=== PATIENT | female | born 1995 | race Caucasian/White ===

== ENCOUNTER 2016-08-02 17:45 | Emergency (ER) | payer BC ==
[2016-08-02 19:02] VITALS: BP 138/81
[2016-08-02] MEDS ORDERED: DOXYcycline CAP(*) 100 MG PO ONE (19:43)
--- NOTE | 2016-08-02 19:54 | UC ---
Skin Complaint HPI - HPI Summary HPI Summary: 21 yo female with three day hx of duong/malaise/myalgias today noted rash on left wrist no known tick bite - History of Current Complaint Chief Complaint: UCGeneralIllness Time Seen by Provider: 08/02/16 19:37 Stated Complaint: RED AREA ON ARM Hx Obtained From: Patient Hx Last Menstrual Period: 07/20/16 Onset/Duration: Gradual Onset, Lasting Days Timing: Constant Onset Severity: Mild Current Severity: Moderate Pain Intensity: 3 Pain Scale Used: 0-10 Numeric Aggravating: Nothing Alleviating: Nothing Associated Signs & Symptoms: Positive: Nausea, Rash - Allergy/Home Medications Allergies/Adverse Reactions: Allergies Allergy/AdvReac Type Severity Reaction Status Date / Time Sulfa Antibiotics Allergy Rash Verified 08/02/16 19:02 Home Medications: Home Medications Ibuprofen [Advil] 600 mg PO Q6HR PRN 08/02/16 [History Confirmed 08/02/16] Review of Systems Constitutional: Fatigue, Other - rash Skin: Negative Eyes: Negative ENT: Negative Respiratory: Negative Cardiovascular: Negative Gastrointestinal: Negative Genitourinary: Negative Motor: Negative Neurovascular: Negative Musculoskeletal: Myalgia Neurological: Headache Psychological: Negative All Other Systems Reviewed And Are Negative: Yes PMH/Surg Hx/FS Hx/Imm Hx Previously Healthy: Yes Endocrine History Of: 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 Denies: Thyroid Disease, Hyperthyroidism, Hypothyroidism, Dyslipidemia Cardiovascular History Of: Denies: Cardiac Disorders, Hypertension, Pacemaker/ICD, Myocardial Infarction , Congestive Heart Failure, Atrial Fibrillation, Deep Vein Thrombosis, Bleeding Disorders Respiratory History Of: Denies: COPD, Asthma, Bronchitis, Pneumonia, Pulmonary Embolism GI/ History Of: Denies: Gastroesophageal Reflux, Ulcer, Gastrointestinal Bleed, Gall Bladder Disease, Kidney Stones, Diverticulitis, Renal Disease, Urosepsis Neurological History Of: Denies: TIA, CVA, Dementia, Seizures, Migraine Psychological History Of: Reports: Anxiety, Depression Denies: Bipolar Disorder, Schizophrenia, Post Traumatic Stress Disorder Cancer History Of: Denies: Lung Cancer, Colorectal Cancer, Breast Cancer, Prostate Cancer, Cervical Cancer Other History Of: Negative For: HIV, Hepatitis B, Hepatitis C, Anticoagulant Therapy - Surgical History Surgical History: None - Family History Known Family History: Negative: Cardiac Disease, Hypertension, Diabetes Family History: NON-CONTRIBUTORY - Social History Alcohol Use: Occasionally Substance Use Type: None Smoking Status (MU): Current Some Day Smoker Amount Used/How Often: 1 cig monthly Household Exposure Type: Cigarettes - Immunization History Most Recent Influenza Vaccination: Not the season Physical Exam Triage Information Reviewed: Yes Appearance: Well-Appearing, No Pain Distress, Well-Nourished Vital Signs: Initial Vital Signs Temp 98.0 F 08/02/16 18:56 Pulse 73 08/02/16 18:56 Resp 18 08/02/16 18:56 BP 138/81 08/02/16 18:56 Pulse Ox 99 08/02/16 18:56 Vital Signs Reviewed: Yes Eyes: Positive: Conjunctiva Clear ENT: Positive: Pharynx normal. Negative: Nasal congestion, Nasal drainage, Trismus Neck: Positive: Supple, Nontender, No Lymphadenopathy Respiratory: Positive: Lungs clear, Normal breath sounds, No respiratory distress, No accessory muscle use Cardiovascular: Positive: RRR, No Murmur Musculoskeletal: Positive: ROM Intact, No Edema Neurological: Positive: Alert Psychological Exam: Normal Skin Exam: Other - 5 cm x 5 cm annular bulls eye rash left forearm Course/Dx - Diagnoses Provider Diagnoses: possible lyme disease Discharge - Discharge Plan Condition: Stable Disposition: HOME Prescriptions: DOXYcycline CAP(*) [DOXYcycline 100MG CAP(*)] 100 mg PO BID #28 cap Patient Education Materials: Lyme Disease (ED) Forms: *Work Release Referrals: Poppy Burris MD [Primary Care Provider] - 2 Weeks Additional Instructions: WILL TREAT YOU FOR POSSIBLE LYME DISEASE
== END 2016-08-02 19:49 | disposition home or self-care (01) ==
LOC: UCEAST 17:45
DX: M79.1 Myalgia (principal); R21 Rash and other nonspecific skin eruption; R11.0 Nausea; R73.03 Prediabetes; F41.9 Anxiety disorder, unspecified; F32.9 Major depressive disorder, single episode, unspecified; Z88.3 Allergy status to other anti-infective agents; F17.210 Nicotine dependence, cigarettes, uncomplicated
CPT/HCPCS: 99212; A9270-GY; G0463

== ENCOUNTER 2016-08-04 19:02 | Emergency (ER) | payer BC ==
[2016-08-04 19:18] VITALS: BP 146/87
--- NOTE | 2016-08-04 20:11 | UC ---
Hand/Wrist HPI - HPI Summary HPI Summary: Seen here 2 days ago for pain in L wrist/forearm and new [place]. Was Rx doxycycline for 2 weeks because odd bruised area formed a ring around a central point, though had no known tick bites. Since then bruised area has not grown, and is fading typical to a bruise. Point in the center is gone. Having worsening pain in wrist, elbow, and forearm, also feels vague numbness and pins and needles in her L hand. Since 5 days ago has been house-sitting for a friend who had dogs, goats, chickens, and other animals. 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 - History Of Current Complaint Chief Complaint: UCGeneralIllness Stated Complaint: TICK BITE,ARM PAIN Time Seen by Provider: 08/04/16 19:41 Hx Obtained From: Patient Hx Last Menstrual Period: 07/23/16 ?: No Onset/Duration: Gradual Onset, Lasting Days Severity Initially: Mild Severity Currently: Moderate Character Of Pain: Dull, Aching Aggravating Factor(s): Movement Alleviating: Rest Associated Signs And Symptoms: Positive: Bruising Related History: Dominant Hand Right - Allergies/Home Medications Allergies/Adverse Reactions: Allergies Allergy/AdvReac Type Severity Reaction Status Date / Time Sulfa Antibiotics Allergy Rash Verified 08/04/16 19:18 PMH/Surg Hx/FS Hx/Imm Hx Endocrine History Of: 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 Denies: Thyroid Disease, Hyperthyroidism, Hypothyroidism, Dyslipidemia Cardiovascular History Of: Denies: Cardiac Disorders, Hypertension, Pacemaker/ICD, Myocardial Infarction , Congestive Heart Failure, Atrial Fibrillation, Deep Vein Thrombosis, Bleeding Disorders Respiratory History Of: Denies: COPD, Asthma, Bronchitis, Pneumonia, Pulmonary Embolism GI/ History Of: Denies: Gastroesophageal Reflux, Ulcer, Gastrointestinal Bleed, Gall Bladder Disease, Kidney Stones, Diverticulitis, Renal Disease, Urosepsis Neurological History Of: Denies: TIA, CVA, Dementia, Seizures, Migraine Psychological History Of: Reports: Anxiety, Depression Denies: Bipolar Disorder, Schizophrenia, Post Traumatic Stress Disorder Cancer History Of: Denies: Lung Cancer, Colorectal Cancer, Breast Cancer, Prostate Cancer, Cervical Cancer Other History Of: Negative For: HIV, Hepatitis B, Hepatitis C, Anticoagulant Therapy - Surgical History Surgical History: None - Family History Known Family History: Negative: Cardiac Disease, Hypertension, Diabetes Family History: NON-CONTRIBUTORY - Social History Occupation: Employed Part-time Alcohol Use: Occasionally Substance Use Type: None Smoking Status (MU): Former Smoker Amount Used/How Often: 1 cig monthly Household Exposure Type: Cigarettes - Immunization History Most Recent Influenza Vaccination: Not the season Most Recent Tetanus Shot: pt unsure Review of Systems Constitutional: Negative Skin: Bruising Eyes: Negative ENT: Negative Respiratory: Negative Cardiovascular: Negative Gastrointestinal: Negative Genitourinary: Negative Motor: Negative Neurovascular: Negative Musculoskeletal: Negative Neurological: Paresthesia, Numbness Psychological: Negative All Other Systems Reviewed And Are Negative: Yes Physical Exam Triage Information Reviewed: Yes Appearance: Well-Appearing, No Pain Distress, Obese Vital Signs: Initial Vital Signs Temp 98.4 F 08/04/16 19:07 Pulse 81 08/04/16 19:07 Resp 16 08/04/16 19:07 BP 146/87 08/04/16 19:07 Pulse Ox 97 08/04/16 19:07 Vital Signs Reviewed: Yes Eye Exam: Normal Eyes: Positive: Conjunctiva Clear ENT Exam: Normal ENT: Positive: Normal ENT inspection, Hearing grossly normal, Pharynx normal, TMs normal Dental Exam: Normal Neck exam: Normal Neck: Positive: Supple, Nontender, No Lymphadenopathy Respiratory Exam: Normal Respiratory: Positive: Chest non-tender, Lungs clear, Normal breath sounds, No respiratory distress, No accessory muscle use Cardiovascular Exam: Normal Cardiovascular: Positive: RRR, No Murmur Musculoskeletal Exam: Other - creaking on L dorsal forearm with flexion/ extension, pain along L forearm muscles, tender at L lateral epicondyle Neurological Exam: Normal Neurological: Positive: Alert Psychological Exam: Normal Skin Exam: Other - 3cm irreg brown/purple bruise L forearm with blurred borders Hand/Wrist Course/Dx - Differential Dx/Diagnosis Provider Diagnoses: Minor contusion to L forearm. Tendinitis L forearm Discharge - Discharge Plan Condition: Stable Disposition: HOME Prescriptions: Cetirizine* [ZyrTEC 10 MG TAB*] 10 mg PO DAILY #30 tab Naproxen Sodium [Naproxen Sodium 500 MG TAB] 500 mg PO BID #20 tab Patient Education Materials: Tendinitis (ED), Allergic Rhinitis (ED) Referrals: Krystal Tony MD [Medical Doctor] - 2 Weeks O'Ameena,Poppy, MD [Primary Care Provider] - 2 Weeks Additional Instructions: As we discussed, the appearance of the spot on your L wrist (especially 2 days later), along with the pain in your forearm is NOT consistent with Lyme and you do not need to keep taking the doxycycline. I think you have tendinitis in your wrist and forearm, and this is causing swelling around the nerves (so you are feeling the pins and needles sensation). The bruise is simply a bruise, which is showing signs of healing and fading. Try to avoid activities that make your symptoms worse. If you have no improvement in 1-2 weeks, see the orthopedist I recommend here. Start the daily cetirizine for your allergies. If you need further help, start a nasal steroid spray (such as flonase or nasocort) every day through your typical allergy season. These can be found over the counter.
== END 2016-08-04 20:10 | disposition home or self-care (01) ==
LOC: UCEAST 19:02
DX: S50.12XA Contusion of left forearm, initial encounter (principal); M77.9 Enthesopathy, unspecified; R73.03 Prediabetes; F41.9 Anxiety disorder, unspecified; F32.9 Major depressive disorder, single episode, unspecified; E66.9 Obesity, unspecified; Z87.891 Personal history of nicotine dependence; Z88.3 Allergy status to other anti-infective agents; X58.XXXA Exposure to other specified factors, initial encounter
CPT/HCPCS: 99212; G0463

== ENCOUNTER 2017-03-13 14:55 | Emergency (ER) | payer BC ==
[2017-03-13 15:05] VITALS: BP 153/89
--- NOTE | 2017-03-13 18:27 | UC ---
Neck Pain HPI - HPI Summary HPI Summary: Patient presents to the ED with CC of sore throat, fatigue, neck pain and low grade temp, sweats and chills x 2 days. + congestion, + cough. Denies fever, but notes to sweats and chills. Denies other symptoms. Denies sick contacts or travel. Denies known contacts with viruses/mumps. - History of Current Complaint Chief Complaint: UCRespiratory Stated Complaint: SORE THROAT, HEADACHE Time Seen by Provider: 03/13/17 15:32 Hx Obtained From: Patient Hx Last Menstrual Period: 02/22/17 ?: No Timing: Constant Onset/Duration: Sudden Onset Pain Intensity: 3 Pain Scale Used: 0-10 Numeric Character: Aching Alleviating Factors: Nothing Associated Signs & Symptoms: Positive: Negative - Risk Factors Meningitis Risk Factors: Negative - Allergies/Home Medications Allergies/Adverse Reactions: Allergies Allergy/AdvReac Type Severity Reaction Status Date / Time Sulfa Antibiotics Allergy Rash Verified 03/13/17 15:05 PMH/Surg Hx/FS Hx/Imm Hx Previously Healthy: Yes Other History Of: Negative For: HIV, Hepatitis B, Hepatitis C, Anticoagulant Therapy - Surgical History Surgical History: None - Family History Known Family History: Negative: Cardiac Disease, Hypertension, Diabetes Family History: NON-CONTRIBUTORY - Social History Occupation: Employed Full-time Lives: With Family Alcohol Use: Occasionally Substance Use Type: None Smoking Status (MU): Former Smoker Amount Used/How Often: 1 cig monthly Household Exposure Type: Cigarettes - Immunization History Most Recent Influenza Vaccination: unknown Most Recent Tetanus Shot: pt unsure Review Of Systems Constitutional: Positive: Chills, Fatigue Skin: Positive: Negative ENT: Positive: Sore Throat, Nasal Discharge, Sinus Congestion, Sinus Pain/ Tenderness Respiratory: Positive: Negative Cardiovascular: Positive: Negative Genitourinary: Positive: Negative Musculoskeletal: Positive: Negative Neurological: Positive: Negative All Other Systems Reviewed And Are Negative: Yes Physical Exam Triage Information Reviewed: Yes Appearance: Well-Appearing, Well-Nourished Vital Signs: Initial Vital Signs Temp 98.0 F 03/13/17 14:59 Pulse 108 03/13/17 14:59 Resp 14 03/13/17 14:59 BP 153/89 03/13/17 14:59 Pulse Ox 97 03/13/17 14:59 Vital Signs Reviewed: Yes Eye Exam: Normal Eyes: Positive: Conjunctiva Clear ENT: Positive: Pharyngeal erythema, Nasal congestion, Nasal drainage, TMs normal , Tonsillar swelling, Sinus tenderness, Uvula midline. Negative: Pharynx normal , TM bulging, TM dull, TM red, Hoarse voice, Dental tenderness Dental Exam: Normal Neck: Positive: Enlarged Nodes @ - bilateral Respiratory: Positive: Chest non-tender, Lungs clear Cardiovascular Exam: Normal Cardiovascular: Positive: RRR Musculoskeletal: Positive: Strength Intact Neurological Exam: Normal Neurological: Positive: Alert Psychological: Positive: Normal Response To Family Skin Exam: Normal Neck Pain Course/Dx - Course Course Of Treatment: Strep negative. Patient is given supportive measures with prescriptions. Note for work. Strict return precautions for worsening symptoms. She is OK with discharge. URI - Differential Dx/Diagnosis Provider Diagnoses: URI Discharge - Discharge Plan Condition: Stable Disposition: HOME Prescriptions: Albuterol HFA INHALER* [Ventolin HFA Inhaler*] 1 puff INH Q4H PRN #1 mdi PRN Reason: Cough Benzonatate CAP* [Tessalon CAP*] 100 mg PO TID #21 cap guaiFENesin ER TAB [Mucinex*] 1,200 mg PO DAILY #10 tab.er predniSONE TAB* [Deltasone TAB*] 50 mg PO DAILY #5 tab MDD 1 Patient Education Materials: Pharyngitis (ED), Upper Respiratory Infection (ED) Forms: *Work Release Referrals: No Primary Care Phys,NOPCP [Primary Care Provider] - Additional Instructions: Tessalon up to three times daily for cough Mucinex once daily for congestion Prednisone once daily in the MORNING (start tomorrow morning) Albuterol inhaler as needed for cough/shortness of breath
== END 2017-03-13 16:38 | disposition home or self-care (01) ==
LOC: UCEAST 14:55
DX: J06.9 Acute upper respiratory infection, unspecified (principal); Z87.891 Personal history of nicotine dependence; Z88.2 Allergy status to sulfonamides
CPT/HCPCS: 87651; 99212; G0463

== ENCOUNTER 2017-10-20 21:39 | Emergency (ER) | payer BC ==
[2017-10-20 21:48] VITALS: BP 134/84
[2017-10-20] MEDS ORDERED: Naproxen TAB* 250 MG PO ONE (21:58)
--- NOTE | 2017-10-20 21:59 | UC ---
Knee Pain HPI - HPI Summary HPI Summary: 22-year-old female presents with complaints of left knee pain. States slipped while descending stairs into her apartment tonight around 9:30 PM. Fell down approximately 3-4 stairs. Denies any other injury. Exact mechanism of injury is unknown although patient does believe that it was a twisting injury. States she has been unable to bear weight or ambulate since the injury. Pain is a constant throbbing. Worsens with any type of movement. Denies any previous injuries to this knee, decrease in sensation distally, or bruising. - History of Current Complaint Chief Complaint: UCLowerExtremity Stated Complaint: KNEE INJURY Time Seen by Provider: 10/20/17 21:48 Hx Obtained From: Patient Hx Last Menstrual Period: 09/22/17 ?: No Onset/Duration: Sudden Onset Severity Initially: Moderate Severity Currently: Moderate Pain Intensity: 10 Character: Throbbing Aggravating Factor(s): Movement Alleviating Factor(s): Nothing Associated Signs And Symptoms: Positive: Negative Able to Bear Weight: No - Allergies/Home Medications Allergies/Adverse Reactions: Allergies Allergy/AdvReac Type Severity Reaction Status Date / Time Sulfa (Sulfonamide Allergy Rash Verified 10/20/17 21:49 Antibiotics) PMH/Surg Hx/FS Hx/Imm Hx Previously Healthy: Yes Respiratory History: Asthma Other History Of: Negative For: HIV, Hepatitis B, Hepatitis C, Anticoagulant Therapy - Surgical History Surgical History: None - Family History Known Family History: Positive: Other - Noncontributory Negative: Cardiac Disease, Hypertension, Diabetes Family History: NON-CONTRIBUTORY - Social History Occupation: Student Lives: Alone Alcohol Use: None Substance Use Type: None Smoking Status (MU): Former Smoker Amount Used/How Often: 1 cig monthly Household Exposure Type: Cigarettes - Immunization History Most Recent Influenza Vaccination: unknown Most Recent Tetanus Shot: pt unsure Review of Systems Constitutional: Negative Skin: Negative Motor: Decreased ROM Neurovascular: Negative Musculoskeletal: Arthralgia, Other: - See history of present illness Is Patient Immunocompromised?: No All Other Systems Reviewed And Are Negative: Yes Physical Exam Triage Information Reviewed: Yes Appearance: Well-Appearing, Pain Distress, Obese, Other: - Head normocephalic and atraumatic Vital Signs: Initial Vital Signs Temp 100.4 F 10/20/17 21:42 Pulse 100 10/20/17 21:42 Resp 20 08/08/18 21:42 BP 134/84 10/20/17 21:42 Pulse Ox 95 10/20/17 21:42 Vital Signs Reviewed: Yes Neck: Positive: Supple, Nontender Respiratory: Positive: No respiratory distress Cardiovascular: Positive: Pulses Normal, Brisk Capillary Refill Musculoskeletal: Positive: No Edema, ROM Limited @ - Left knee due to pain, Other: - Diffuse left knee tenderness to palpation. No obvious deformity. No ecchymosis, abrasions, or erythema. Neurological: Positive: Other: - Sensation intact distally Skin Exam: Normal UC Physical Exam Vital Signs On Initial Exam: Initial Vitals Temp Pulse Resp BP Pulse Ox 100.4 F 100 20 134/84 95 10/20/17 21:42 10/20/17 21:42 10/20/17 21:42 10/20/17 21:42 10/20/17 21:42 Diagnostics - Radiology No standard instances Xray Interpretation: Positive (See Comments) - Mildly displaced left patella fracture. Preliminary reading by myself. Radiology Interpretation Completed By: ED Physician Knee Pain Course/Dx - Course Course Of Treatment: 22-year-old female presents with left knee pain status post fall down 3-4 stairs. She was notably tender over the left patella on exam. X-ray shows a mildly displaced left patellar fracture. Patient was placed in a knee immobilizer. She presented with her own crutches. She was given hydrocodone/acetaminophen 5325 mg 1 tab prior to discharge as well as ondansetron 4 mg for some nausea. She was dispensed with 2 doses of the hydrocodone/acetaminophen and provided a prescription. Home care was reviewed with the patient verbalizes understanding. She is to call first thing in the morning to make a follow-up appointment with Dr. Rosales from orthopedic surgery. - Differential Dx/Diagnosis Differential Diagnosis/HQI/PQRI: Fracture (Closed), Internal Derangement Of Knee , Sprain, Strain, Tendonitis Provider Diagnoses: Left patellar fracture displaced Discharge - Sign-Out/Discharge Documenting (check all that apply): Patient Departure - Discharge Plan Condition: Stable Disposition: HOME Prescriptions: Hydrocodone/Acetaminophen [Hydrocodone-Acetamin 5-325 mg] 1 each PO Q6HR PRN # 28 tablet MDD 4 PRN Reason: Pain Patient Education Materials: Patellar Fracture (ED) Forms: *Work Release Referrals: No Primary Care Phys,NOPCP [Primary Care Provider] - Boone Rosales MD [Medical Doctor] - 2 Days (Call in the morning for appointment.) Additional Instructions: Your x-ray performed in the clinic today shows a fracture of your left patella ( kneecap). Rest your leg. You should not bear weight or ambulate until seen by orthopedics. Use your crutches for ambulation. Apply ice to the knee for 15-20 minutes at least 4 times a day to help reduce swelling. Wear the knee immobilizer at all times. You may remove to shower or bathe but should wear at all other times including while sleeping. The sure to keep her leg elevated to help reduce swelling. You been prescribed hydrocodone/acetaminophen 1 tab orally every 6 hours as needed for pain. This is a narcotic and will cause drowsiness so do not take and drive or operate machinery. You may also take an anti-inflammatory such as ibuprofen according to directions for pain. You been given a referral to the orthopedic surgeon, Dr. Rosales, be sure to call his office first thing in the morning to schedule an appointment for follow -up. - Billing Disposition and Condition Condition: STABLE Disposition: Home
[2017-10-20] MEDS ORDERED: HYDROcodone/ACETAMIN 5-325 MG* 1 TAB PO ONE ×2 (22:13)
[2017-10-20] MEDS ORDERED: Ondansetron ODT TAB* 4 MG PO ONE (22:15)
--- NOTE | 2017-10-21 07:11 | RAD ---
INDICATION: Left knee pain after a fall down stairs COMPARISON: Similar radiograph dated October 02, 2015 TECHNIQUE: 4 view radiograph of the left knee. FINDINGS: On the AP view of the left knee there is a longitudinally oriented fracture line along the medial aspect of the left patella. On the sunrise view this nondisplaced fracture is seen along the medial margin of the patella. Remaining visualized bones are intact and appropriately aligned. There is a hyperdense fluid collection within the knee joint consistent with hemarthrosis. IMPRESSION: Nondisplaced fracture involving the medial aspect of the left patella. R0
== END 2017-10-20 22:45 | disposition home or self-care (01) ==
LOC: UCEAST 21:39
DX: S82.002A Unspecified fracture of left patella, initial encounter for closed fracture (principal); W10.9XXA Fall (on) (from) unspecified stairs and steps, initial encounter; Y93.9 Activity, unspecified; Y92.9 Unspecified place or not applicable; Z88.2 Allergy status to sulfonamides; Z87.891 Personal history of nicotine dependence
CPT/HCPCS: 99213; A9270-GY; G0463

== ENCOUNTER 2017-11-05 08:10 | Day surgery (SDC) | payer BC ==
[~2017-11-05 08:10] MED LIST: Buffered Lidocaine 0.9% SYRIN* 5 ML/SYR SYRINGE INTRADERM ONE
[2017-11-05] MEDS ORDERED: ceFAZolin 1 GM ADVAN(*) 1 GM ADDV.VIAL IVPB ONE (08:20)
[2017-11-05] MEDS ORDERED: ceFAZolin 2 GM PREMIX (*) 2 GM/50 ML BAG IVPB ONE (08:20)
[2017-11-05] MEDS ORDERED: fentaNYL* 50 MCG/ML 5 ML VIAL (250 MCG VIAL) ONE (08:43)
[2017-11-05] MEDS ORDERED: Midazolam* 1 MG/ML 2 ML VIAL (2 MG) ONE (08:43)
[2017-11-05] MEDS ORDERED: Rocuronium* 10 MG/ML VIAL ONE (09:39)
[2017-11-05] MEDS ORDERED: Bupivacaine 0.25% W/EPI* 10 ML SDV ONE ×2 (09:47→13:03)
[2017-11-05] MEDS ORDERED: EPINEPHRINE 1 MG/ML 1 ML VIAL ONE (09:49)
[2017-11-05] MEDS ORDERED: Morphine VIAL* 10 MG/ML 1 ML VIAL ONE (11:50)
[2017-11-05] MEDS ORDERED: Dexamethasone IV* 4 MG/ML 1 ML (4 MG) ONE (11:59)
[2017-11-05] MEDS ORDERED: Metoclopramide IV* 5 MG/ML 2 ML VIAL ONE (12:01)
[2017-11-05] MEDS ORDERED: Morphine INJ* 2 MG/ML 1 ML SYRINGE (TWO MG - NEW SYRINGE VERSION) IV PRN (12:05)
[2017-11-05] MEDS ORDERED: DiMENhydriNATE IV* 50 MG/ML VIAL IV PUSH PRN (12:05)
[2017-11-05] MEDS ORDERED: Naloxone* 0.4 MG/ML 1 ML VIAL IV PRN (12:05)
[2017-11-05] MEDS ORDERED: Ondansetron INJ* 2 MG/ML VIAL IV PRN (12:05)
[2017-11-05] MEDS ORDERED: Acetaminophen TAB* 325 MG PO PRN (12:05)
[2017-11-05] MEDS ORDERED: HYDROcodone/ACETAMIN 5-325 MG* 1 TAB PO PRN (12:05)
[2017-11-05] MEDS ORDERED: Ondansetron INJ* 2 MG/ML VIAL ONE ×2 (13:15→13:58)
[2017-11-05] MEDS ORDERED: fentaNYL* 50 MCG/ML 2 ML VIAL (100 MCG VIAL) ONE ×2 (13:34→14:38)
[2017-11-05] MEDS: fentaNYL* 50 MCG/ML 2 ML VIAL (100 MCG VIAL) IV PRN ×5 (13:35→14:44)
[2017-11-05] MEDS ORDERED: Morphine INJ* 2 MG/ML 1 ML SYRINGE (TWO MG - NEW SYRINGE VERSION) ONE (13:50)
[2017-11-05] MEDS ORDERED: HYDROcodone/ACETAMIN 5-325 MG* 1 TAB ONE (14:37)
[2017-11-05] MEDS ORDERED: Ketorolac INJ* 30 MG/ML 1 ML VIAL ONE (14:38)
[2017-11-05] MEDS ORDERED: Ketorolac INJ* 15 MG/ML 1 ML VIAL IV PUSH ONE (14:41)
[2017-11-05] MEDS ORDERED: Succinylcholine* 20 MG/ML 10 ML VIAL ONE (14:52)
[2017-11-05 16:04] VITALS: BP 141/80
--- NOTE | 2017-11-07 22:32 | OP ---
DATE OF OPERATION: 11/05/17 [facility] DATE OF : 95. SURGEON: Boone Rosales MD. TIME CLOCK MECHANIC: BAKARI Mcdaniel. A physician business assistant was required for the length of the procedure for assistance with positioning, instrumentation, retraction and closure. ANESTHESIOLOGIST: Dr. Zachery Shearer. ANESTHESIA: General anesthesia, local anesthesia using 20 cc of 0.25% Marcaine with epinephrine. PRE-OP DIAGNOSIS: Left knee patella fracture, displaced. POST-OP DIAGNOSIS: Left knee patella fracture, displaced. OPERATIVE PROCEDURE: Open reduction internal fixation left knee patella fracture. ANTIBIOTICS: Ancef 3 g IV. IV FLUIDS: 1200 cc of crystalloid. TOURNIQUET TIME: 74 minutes at 300 mmHg. [id number]-YY-[id number] TIME: 70 minutes. SPECIMEN: None. IMPLANTS: Arthrex 3.0 mm cannulated partially threaded screws, x2 were placed. FiberTape from Arthrex was placed through the screws for a tension band technique. ESTIMATED BLOOD LOSS: Minimal. COMPLICATIONS: None. INDICATION FOR PROCEDURE: The patient is a 22-year-old woman who injured her left knee on 10/20/17 and presented in clinic where review of radiographs showed a displaced oblique fracture of the left patella specifically about the medial or inferomedial aspect of the patella. There was significant stepoff intraarticular of 3 to 4 mm. I obtained an MRI of the patient's left knee to see if there was any other injury to the knee and to see if there was any evidence of a patellar dislocation though patient could not describe such an event, but clear advantage of one of the things that I can consider when there is a fracture about the medial patella to which the patient did not recall falling onto the patella, but she was not very clear how she fell the besides falling backwards is her mechanism. MRI demonstrated no contusions of the medial patella or lateral trochlear groove or any other evidence of patellar instability event. Therefore, I treated this as a patellar fracture and not as a fracture dislocation of the patella. I discussed risks and potential complications of the surgery with the patient including bleeding, infection, nerve or blood vessel injury, knee pain, stiffness, osteoarthritis, blood clot. DESCRIPTION OF PROCEDURE: Patient signed a written consent in the preoperative holding. Operative extremity was marked in the preoperative holding. The patient was taken back to the operating room and placed supine on the operating room table. Sedated and intubated. A bump on her left hemipelvis. The C-arm was present in the room. The left lower extremity was prepped and draped. Surgical time-out performed. An Esmarch was applied and the tourniquet that was present about the proximal thigh, was inflated to 300 mmHg. I made an anterior midline longitudinal skin incision with the knee in 30 degrees of flexion, starting several centimeters proximal through the proximal pole of the patella and ending several centimeters distal to the distal pole of the patella. I extended that incision eventually closer to the tibial tubercle. I exchanged knives and continued my dissection down to the patella. I cleared patella medially and laterally. I was able to palpate the location of the oblique fracture line. I used a deep knife to cut the superficial tissue and periosteum at the location of the fracture, freeing up the fracture. I debrided the fracture ends of clot with rongeur and a curette. I reduced the fracture with my fingers and then placed two large bone clamps across the fracture. I then placed one K-wire across the fracture to help with the reduction. A C-arm imaging was brought in and multiple AP and lateral views confirmed excellent reduction. I was visibly able to inspect the fracture site at its proximal and distal most extent and confirm excellent reduction visually. It should be noted that I made a transverse incision of the medial capsule at the level of the suture most extent to the fracture. I made a longitudinal incision, just distal to the patella, through patellar tendon fibers at the distal end of the fracture to help visualize my reduction and to aid in reduction itself. Now that I was happy with reduction, I placed 2 K-wires across in my preferred location for future screws. These K-wires were placed perpendicular to the fracture line. They were located about the mid point from superficial to deep in the patella. I measured the length of the intended screws, drilled and then placed my screws. Two separate partially threaded 3.0 mm cannulated screws were placed across the fracture. X-ray imaging demonstrated continued excellent reduction as did visualization of the proximal distal most extents of the fracture as well as the superficial nature of the fracture line that was exposed. I placed a FiberTape through the cannulated screws and then tied a knot, tension band technique. Irrigation. Final x-rays. Closure of the vertical switch between patellar tendon fibers was closed with [id number] stitches using Vicryl 0 suture. Closure of the horizontal incision in the medial capsule, inline with MPSL fibers was closed with some Ethibond 0 suture and some Vicryl 0 suture both [id number] stitches. A Vicryl 0 figure- of-eight stitch was used to bring the knot of FiberWire too down to bone nicely. Irrigation. Closure of the subcutaneous tissue with buried simple stitches using Vicryl 2-0 suture. Closure of the skin with zac. Local anesthesia, 20 cc was infused into the subcutaneous tissue. Xeroform, 4x4s, ABDs, sterile Webril, Junior bandage from foot to proximal thigh. Tourniquet was dropped. A knee brace was applied and locked in full extension. Patient was awakened and extubated and transferred to the PACU. DISPOSITION: The patient was discharged home when medically stable. She will take Percocet as needed for pain control, Keflex for infection prevention and aspirin b.i.d., for 2 weeks for DVT prophylaxis. She will follow up with me in clinic in 10 to 14 days postoperatively. Wound care instructions were provided. Patient will not start physical therapy until after her first clinic visit with me. [id number]/[facility] #: [id number] ABELINO
--- NOTE | 2017-11-08 10:14 | RAD ---
CPT II Codes: G9500 INDICATION: Traumatic patellar fracture. Fluoroscopic services provided for referring physician. Approximately 18.2 seconds of fluoroscopy time was used. 8 spot images demonstrates internal fixation patellar fracture. IMPRESSION: Fluoroscopic services provided for referring physician for internal fixation of a patellar fracture.
== END 2017-11-05 17:04 | disposition home or self-care (01) ==
LOC: OR 08:10
PROVIDERS: ATTEND Orthopaedic Surgery
DX: S82.092A Other fracture of left patella, initial encounter for closed fracture (principal); W10.8XXA Fall (on) (from) other stairs and steps, initial encounter; Y92.096 Garden or yard of other non-institutional residence as the place of occurrence of the external cause; G47.33 Obstructive sleep apnea (adult) (pediatric); Z87.891 Personal history of nicotine dependence; E66.01 Morbid (severe) obesity due to excess calories; F32.9 Major depressive disorder, single episode, unspecified; J45.909 Unspecified asthma, uncomplicated
CPT/HCPCS: 76001; 81025; C1713; J0330; J0690; J1100; J1885; J2250; J2270; J2405; J2765; J3010

== ENCOUNTER 2018-08-10 18:19 | Emergency (ER) | payer BC ==
--- OUTSIDE RECORDS SUMMARY | 2018-08-10 18:23 | XMS REPORT | Continuity of Care Document ---
:1995 External Reference #:[id number] Author Name Sonia Olguin Care Team Providers Name Role Phone Patient's Choice Primary Care Physician Unavailable Payers Date Identification Numbers Payment Provider Subscriber Effective: 2006 Policy Number: [id number] [facility] Lai Gil Group Name: [id number] [address] PayID: [id number] CHRISTINA Williamson [id number] Expires: 2014 Policy Number: [id number] Medicaid Deborah Gil Group Name: 1 [address] PayID: [id number] [place] [address] Advance Directives Description No Information Available Problems Active Problems Provider Date Disturbance in sleep behavior Oswald Zamarripa M.D. Onset: 04/11/2015 Insufficient sleep syndrome Oswald Zamarripa M.D. Onset: 04/11/2015 Obstructive sleep apnea syndrome Sarah Whitlock DNP, RN, [facility] Onset: Family History Date Family Member(s) Observation Comments General Colon Cancer Father Alive And Well Mother Stroke Siblings 5 Siblings 5 Healthy siblings Social History Type Date Description Comments Sex Unknown Lives With Father Occupation Door food and beverage checker at [employer] Use Denies alcohol use Tobacco Use Start: Unknown End: Patient is a former Quit x 1 mo ago, Unknown smoker only smoked x 3 mos Smoking Status Reviewed: 07/26/18 Patient is a former Quit x 1 mo ago, smoker only smoked x 3 mos Exercise Type/Frequency Exercises regularly Walking Allergies, Adverse Reactions, Alerts Active Allergies Reaction Severity Comments Date Sulfa 11/27/2011 Medications Active Medications SIG Qnty Indications Ordering Provider Date Hydrocodone-Acetamino 1 tab by mouth 20tabs Dm Humphries MD 11/16/2017 phen every 6 hours as 5-325mg Tablets needed for pain Ibuprofen as needed Unknown 200mg Capsules History Medications Percocet take 1 tabs by 30tabs Boone Rosales, 11/05/2017 - 5-325mg mouth q4-6 hours 11/16/2017 Tablets as needed pain Keflex 1 tab by mouth 21caps Boone Rosales, 11/05/2017 - 500mg Capsules three times a day 02/21/2018 Trazodone HCL 1 tablet at 30tabs Oswald Zamarripa, 04/10/2015 - 50mg bedtime as needed M.D. 10/25/2017 Tablets Prozac 1 po qd Other Ordering 07/28/2012 - 20mg Capsules Provider 03/15/2014 Ibprofen 1 q 6 h as needed Other Ordering 07/28/2012 - 600mg Provider 10/25/2017 No Active Medications Krystal Tony, 06/01/2012 - M.DRaymond 07/28/2012 Clonidine HCL 1 by mouth at Unknown - 0.2mg bedtime 04/10/2015 Tablets Hydrocodone-Acetamino Take 1 tab by 28tabs Boone Rosales, - phen mouth every 6 11/05/2017 5-325mg Tablets hours as needed pain Immunizations CPT Code Status Date Vaccine Lot # [id number] Given 01/09/2015 Influenza Virus 3Yrs & Over Vital Signs Date Vital Result Comment 07/26/2018 11:33am Height 67 inches 5'7" Weight 275.00 lb Heart Rate 83 /min Body Temperature 97.3 F O2 % BldC Oximetry 96 % BMI (Body Mass Index) 43.1 kg/m2 04/26/2018 12:02pm Height 67 inches 5'7" Weight 273.00 lb Patient stated Heart Rate 56 /min BP Systolic 122 mmHg BP Diastolic 80 mmHg Respiratory Rate 16 /min Pain Level 0 BMI (Body Mass Index) 42.8 kg/m2 02/22/2018 9:40am Height 67 inches 5'7" Weight 270.00 lb Heart Rate 79 /min BP Systolic 138 mmHg BP Diastolic 74 mmHg Respiratory Rate 12 /min Pain Level 0 BMI (Body Mass Index) 42.3 kg/m2 01/11/2018 2:06pm Heart Rate 76 /min BP Systolic 132 mmHg BP Diastolic 88 mmHg Respiratory Rate 16 /min Pain Level 4 12/22/2017 1:04pm Height 67 inches 5'7" Heart Rate 88 /min BP Systolic 130 mmHg BP Diastolic 82 mmHg Respiratory Rate 18 /min Pain Level 2 11/30/2017 1:10pm Height 67 inches 5'7" Weight 242.00 lb BP Systolic Sitting 126 mmHg BP Diastolic Sitting 68 mmHg Respiratory Rate 14 /min Body Temperature 98.9 F Pain Level 0 BMI (Body Mass Index) 37.9 kg/m2 11/16/2017 2:09pm Height 67 inches 5'7" Weight 272.00 lb Heart Rate 100 /min Respiratory Rate 18 /min Body Temperature 99.5 F Pain Level 5 BMI (Body Mass Index) 42.6 kg/m2 10/26/2017 8:45am Height 67 inches 5'7" Weight 270.00 lb BP Systolic 119 mmHg BP Diastolic 77 mmHg Respiratory Rate 17 /min Pain Level 10 BMI (Body Mass Index) 42.3 kg/m2 07/12/2015 9:35am Height 67 inches 5'7" Weight 245.00 lb Heart Rate 63 /min BP Systolic Sitting 129 mmHg BP Diastolic Sitting 77 mmHg Respiratory Rate 16 /min O2 % BldC Oximetry 98 % BMI (Body Mass Index) 38.4 kg/m2 04/11/2015 1:02pm Height 67 inches 5'7" Weight 252.50 lb Heart Rate 73 /min BP Systolic 124 mmHg BP Diastolic 78 mmHg Respiratory Rate 12 /min O2 % BldC Oximetry 98 % BMI (Body Mass Index) 39.5 kg/m2 Neck Circumference in inches 20 07/11/2014 9:33am Height 67 inches 5'7" Weight 247.00 lb Heart Rate 71 /min BP Systolic Sitting 139 mmHg BP Diastolic Sitting 91 mmHg Pain Level 5 BMI (Body Mass Index) 38.7 kg/m2 07/28/2012 2:48pm Height 67 inches 5'7" Weight 210.00 lb BMI (Body Mass Index) 32.9 kg/m2 Blood Pressure Percentile 0 % Height Percentile 86 % Weight Percentile >97th Results Description No Information Available Procedures Date Code Description Status 11/05/2017 50317 Open TX Of Patellar FX W/Internal Fixation And/Or Partial Completed Patelle 11/05/2017 43890 Open TX Of Patellar FX W/Internal Fixation And/Or Partial Completed Patelle 04/22/2015 21970 Sleep Study Unattended,HRT Rate,Oxygen Sat,Resp Completed Effort/Airflow 07/28/2012 71271 Rad Exam; Foot Comp Completed Encounters Type Date Location Provider Dx Diagnosis Office Visit 04/26/2018 [facility] S82.002D Unsp fracture of 11:30a Services Of Shanita Rosales MD left patella, subs for clos fx w routn heal S82.092D Oth fracture of left patella, subs for clos fx w routn heal Office Visit 02/22/2018 9:00a [facility]opedic [facility] S82.002D Unsp fracture Services Of MD Connie of left C.M.A. patella, subs for clos fx w routn heal Office Visit 10/26/2017 8:15a Orthopedic [facility] S82.002A Unsp fracture Services Of MD Connie of left C.M.A. patella, init for clos fx S82.021A Displaced longitudinal fracture of right patella, init Office Visit 07/12/2015 Pulmonology And Sarah G47.33 Obstructive sleep 9:30a Sleep Services Of MANDA Whitlock, RN, apnea (adult) [facility] EVAPORATOR SUPERVISOR-BC (pediatric) Office Visit 04/11/2015 Pulmonology And Oswald Zamarripa, G47.9 Sleep disorder, 1:30p Sleep Services Of Rusty unspecified [facility] F51.12 Insufficient sleep syndrome Office Visit 07/11/2014 9:00a Orthopedic Ilan Guerra, 924.11 Contusion Knee Services Of Rusty Diehl 719.46 Pain Joint Lower Leg Office Visit 07/28/2012 Sports Medicine Yasmany Pal, 719.47 Pain Joint Ankle & 2:30p Of Gut Sorter AT M.D. 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 Patella AT [place] Office Visit 02/12/2012 [facility] Orville Paulino, 836.3 Dislocation Knee 10:30a of Gut Sorter MDanyell Patella Closed 844.9 Sprains & Strains Knee & Leg Unspec Office Visit 01/13/2012 9:15a Joint Myrtle Paulino, 836.3 Dislocation Knee of Jfery Ojeda Patella Closed Office Visit 12/23/2011 2:30p [facility] Orville Paulino, 836.3 Dislocation Knee of Gut Sorter M.D. Patella Closed 844.9 Sprains & Strains Knee & Leg Unspec Office Visit 12/09/2011 2:30p [facility] Orville Paulino, 836.3 Dislocation Knee of Gut Sorter M.D. Patella Closed Office Visit 11/27/2011 9:00a [facility] Orville Paulino, 844.9 Sprains & Strains of Gut Sorter M.D. Knee & Leg Unspec Plan of Treatment 07/26/2018 - Boone Rosales, MDS82.002D Unspecified fracture of left patella , subsequent encounter fFollow up:Follow up: As needed
[2018-08-10 19:08] VITALS: BP 129/76
--- NOTE | 2018-08-10 19:24 | UC ---
Abdominal Pain Female HPI - HPI Summary HPI Summary: 23 yo female presents with abdominal pain and nausea. She tells me that yesterday her stomach felt "off" and she was nauseous with a decreased appetite. Today she has had 6 episodes of vomiting and has not eaten anything due to this. She is drinking well. Today had a larger than normal BM that may have been a bit looser than normal. She is having some generalized abdominal discomfort. Denies fever, chills, SOB, chest pain, flank pain, dysuria. LMP 08/07 - History of Current Complaint Chief Complaint: UCAbdominalPain Stated Complaint: ABDOMINAL PAIN Time Seen by Provider: 08/10/18 19:24 Hx Obtained From: Patient Hx Last Menstrual Period: 08/07/18 Onset/Duration: Sudden Onset Severity Initially: Moderate Severity Currently: Moderate Pain Intensity: 6 Pain Scale Used: 0-10 Numeric Allergies/Adverse Reactions: Allergies Allergy/AdvReac Type Severity Reaction Status Date / Time Sulfa (Sulfonamide Allergy Rash Verified 08/10/18 19:08 Antibiotics) Home Medications: Home Medications DiMENhydriNATE TAB* [DraMAMine TAB*] 50 mg PO ONCE PRN 08/10/18 [History Confirmed 08/10/18] PMH/Surg Hx/FS Hx/Imm Hx - Additional Past Medical History Additional PMH: None Other History Of: Negative For: HIV, Hepatitis B, Hepatitis C, Anticoagulant Therapy - Surgical History Surgical History: Yes Surgery Procedure, Year, and Place: LEFT KNEE (ORIF) - Family History Known Family History: Positive: Non-Contributory Negative: Cardiac Disease, Hypertension, Diabetes Family History: NON-CONTRIBUTORY - Social History Occupation: Employed Full-time Lives: With Family Alcohol Use: None Substance Use Type: None Smoking Status (MU): Former Smoker Amount Used/How Often: RARELY X 1 YEAR Have You Smoked in the Last Year: Yes Household Exposure Type: Cigarettes - Immunization History Most Recent Influenza Vaccination: unknown Most Recent Tetanus Shot: pt unsure Review of Systems All Other Systems Reviewed And Are Negative: Yes Constitutional: Positive: Negative Skin: Positive: Negative Respiratory: Positive: Negative Cardiovascular: Positive: Negative Gastrointestinal: Positive: Abdominal Pain, Vomiting, Nausea Genitourinary: Positive: Negative Neurological: Positive: Negative Psychological: Positive: Negative Physical Exam - Summary Physical Exam Summary: GENERAL: NAD. Obese SKIN: No rashes, sores, lesions, or open wounds. NECK: Supple. Nontender. No lymphadenopathy. CHEST: CTAB. No r/r/w. No accessory muscle use. Breathing comfortably and in no distress. CV: RRR. Without m/r/g. Pulses intact. Cap refill <2seconds ABDOMEN: Soft. NTTP. No CVA tenderness. Bowel sounds present. Negative glover sign. No Mcburney point tenderness NEURO: Alert. PSYCH: Age appropriate behavior. Triage Information Reviewed: Yes Vital Signs: Initial Vital Signs Temp 98 F 08/10/18 19:04 Pulse 67 08/10/18 19:04 Resp 16 08/10/18 19:04 BP 129/76 08/10/18 19:04 Pulse Ox 98 08/10/18 19:04 Laboratory Tests 08/10/18 08/10/18 19:36 19:38 POC Urine Color Yellow POC Urine Clarity Clear POC Urine pH 7.0 POC Ur Specif [place] 1.020 POC Urine Protein Negative POC Ur Glucose (UA) Negative POC Urine Ketones Negative POC Urine Blood Trace-intact A POC Urine Nitrite Negative POC Urine Bilirubin Negative POC Urine Urobilinogen 2.0 A POC U Leukocyte Esteras Negative POC Ur Test Negative Vital Signs Reviewed: Yes Abd Pain Female Course/Dx - Course Course Of Treatment: UA and urine negative. In the clinic she was given zofran, pepcid, and maaloxx for her symptoms and reported feeling better with less nausea. She drank water in the clinic. Suspect viral gastroenteritis and will rx for zofran and have her try a bland BRAT diet and advance as tolerated. If symptoms worsen advised to go to the ED. - Differential Dx/Diagnosis Provider Diagnosis: Nausea and vomiting Discharge - Sign-Out/Discharge Documenting (check all that apply): Patient Departure All imaging exams completed and their final reports reviewed: No Studies - Discharge Plan Condition: Stable Disposition: HOME Prescriptions: Ondansetron ODT TAB* [Zofran 4 MG Odt TAB*] 4 mg PO Q8H PRN #12 tab.odt PRN Reason: Nausea Patient Education Materials: Gastroenteritis (DC) Forms: *Work Release Referrals: No Primary Care Phys,NOPCP [Primary Care Provider] - Additional Instructions: If you develop a fever, shortness of breath, chest pain, new or worsening symptoms - please call your PCP or go to the ED immediately. 1) Rest and drink plenty of fluids 2) Advance your diet as tolerated starting with a bland diet of bananas, rice, applesauce, and toast. 3) If your abdominal pain worsens or your vomiting continues beyond tomorrow - please go to the ER for further evaluation - Billing Disposition and Condition Condition: STABLE Disposition: Home
[2018-08-10] MEDS ORDERED: Ondansetron ODT TAB* 4 MG SL ONE (19:47)
[2018-08-10] MEDS ORDERED: Famotidine TAB* 20 MG PO ONE (19:58)
[2018-08-10] MEDS ORDERED: Al Hydrox/Mg Hydrox/Simet LIQ* 30 ML UDC PO ONE (19:58)
== END 2018-08-10 20:50 | disposition home or self-care (01) ==
LOC: UCEAST 18:19
DX: R11.2 Nausea with vomiting, unspecified (principal); Z88.2 Allergy status to sulfonamides
CPT/HCPCS: 81003; 84702; 99212; A9270-GY; G0463